=== PATIENT | female | born 1980 | race Caucasian/White ===

== ENCOUNTER → 2017-11-05 | Outpatient (CLI) | payer BC ==
[~2017-11-05] MED LIST: CIPR250 PO; DOXY100 PO; HYDGUAL120 PO; OXYACE5T PO; PHENA200 PO
[2017-11-07 13:01] LABS: HPV Genotype 16 Not Detected (NOTDET); HPV Genotype 18 Not Detected (NOTDET)
[2017-11-11 07:42] LABS: HPV High Risk Other Not Detected (NOTDET)
== END | disposition home or self-care (01) ==
LOC: LAB 16:09
PROVIDERS: Obstetrics & Gynecology
DX: Z12.4 Encounter for screening for malignant neoplasm of cervix (principal)
CPT/HCPCS: 87624; G0123

== ENCOUNTER → 2018-03-31 | Outpatient (CLI) | payer BC ==
[2018-03-31 12:51] LABS: Source, Urine Clean Catch
[2018-03-31 14:45] LABS: Bilirubin, Urine Neg (Neg); Blood, Urine 4+ (Neg); Glucose Qualitative, Urine Neg (Neg); Ketones, Urine Neg (Neg); Leukocyte Esterase, Urine 2+ (Neg); Nitrite, Urine Neg (Neg); Protein, Urine Neg (Neg); Specific Gravity, Urine 1.015 (1.003-1.022); Urobilinogen, Urine NORM (Normal)
[2018-03-31 14:57] LABS: Appearance, Urine Clear (Clear); Color, Urine Pale Yellow (P-Yellow)
[2018-03-31 14:58] LABS: White Blood Cells, Urine 25-50 /hpf (0-5)
[2018-03-31 14:59] LABS: Bacteria Mod /hpf; Red Blood Cells, Urine 25-50 /hpf (0-2); Squamous Epithelial Cells Not Seen /hpf (Few)
== END | disposition home or self-care (01) ==
LOC: LAB 12:48 → LAB SHORT 12:48
PROVIDERS: Internal Medicine
DX: R30.0 Dysuria (principal)
CPT/HCPCS: 81001; 87077; 87086; 87186

== ENCOUNTER 2018-12-06 06:21 | Emergency (ER) | payer BC ==
[~2018-12-06] VITALS: Ht 177.8 cm; Wt 106.6 kg
[2018-12-06] MEDS ORDERED: ROPI.25 PO (06:53)
[2018-12-06] MEDS ORDERED: Omega-31000 MG PO (06:55)
[2018-12-06] MEDS ORDERED: OMEG1CAP30 PO (06:55)
[2018-12-06 07:37] LABS: Source, Urine Clean Catch
[2018-12-06 07:59] LABS: BASOPHILS ABSOLUTE AUTO 0.02 K/mm3 (0.00-0.23); BASOPHILS PERCENT AUTO 0 % (0-2); EOSINOPHILS PERCENT AUTO 0 % (0-6); Hemoglobin 13.3 g/dL (11.5-16.0); IMMATURE GRAN ABSOLUTE AUTO 0.03 K/mm3 (0.00-0.10); IMMATURE GRAN PERCENT AUTO 0 % (0-1); LYMPHOCYTES ABSOLUTE AUTO 1.09 K/mm3 (0.84-5.20); LYMPHOCYTES PERCENT AUTO 10 % (21-46); MONOCYTES ABSOLUTE AUTO 0.27 K/mm3 (0.16-1.47); MONOCYTES PERCENT AUTO 3 % (4-13); Mean Corpuscular HGB 30.2 pg (26.0-34.0); Mean Corpuscular HGB Conc 33.3 g/dL (31.5-36.5); Mean Corpuscular Volume 91 fL (80-100); Mean Platelet Volume 10.3 fL (9.1-12.4); NEUTROPHILS ABSOLUTE AUTO 9.49 K/mm3 (1.96-9.15); NEUTROPHILS PERCENT AUTO 87 % (41-73); Platelet Count 260 K/mm3 (150-400); RDW Coefficient Variation 13.1 % (11.7-14.2); RDW Standard Deviation 43.9 fL (35.1-46.3); Red Blood Cell Count 4.41 M/mm3 (3.80-5.20)
[2018-12-06 08:11] LABS: Alanine Aminotransfer (ALT/SGP 39 U/L (12-78); Albumin, Blood 3.9 g/dL (3.4-5.0); Albumin/Globulin Ratio 1.2 (0.8-1.8); Alk Phos 65 U/L (50-136); Anion Gap 9 mmol/L (6-16); Aspartate Aminotrans (AST/SGOT 21 U/L (12-37); Bilirubin, Total 0.3 mg/dL (0.1-1.0); Blood Urea Nitrogen 17 mg/dL (8-24); Bun/Creatinine Ratio 27.7 (12.0-20.0); CO2, Blood 22 mmol/L (21-32); Calcium, Blood 8.5 mg/dL (8.5-10.1); Chloride, Blood 108 mmol/L (98-108); Creatinine, Blood 0.61 mg/dL (0.40-1.00); Globulin, Blood 3.3 g/dL (2.2-4.0); Glomerular Filtration Rate >60 (60-); Glucose, Blood 139 mg/dL (70-99); Potassium, Blood 3.8 mmol/L (3.5-5.5); Sodium, Blood 139 mmol/L (136-145); Total Protein, Blood 7.2 g/dL (6.4-8.2)
[2018-12-06 08:16] LABS: Appearance, Urine Hazy (Clear); Bilirubin, Urine Neg (Neg); Blood, Urine 2+ (Neg); Color, Urine Yellow (P-Yellow); Glucose Qualitative, Urine Neg (Neg); Ketones, Urine 4+ (Neg); Leukocyte Esterase, Urine Neg (Neg); Nitrite, Urine Neg (Neg); Protein, Urine 2+ (Neg); Specific Gravity, Urine 1.025 (1.003-1.022); Urobilinogen, Urine NORM (Normal)
[2018-12-06 08:33] LABS: Amorphous Heavy (0-Heavy); Bacteria Few /hpf; Red Blood Cells, Urine 0-2 /hpf (0-2); Squamous Epithelial Cells Many /hpf (Few); White Blood Cells, Urine Not Seen /hpf (0-5)
[2018-12-06] MEDS ORDERED: ONDA4ODT MM (08:36)
[2018-12-06] MEDS ORDERED: Norco 5-325 Ta1 EACH PO (08:36)
== END 2018-12-06 09:58 | disposition home or self-care (01) ==
LOC: ER 06:21
PROVIDERS: Emergency Medicine
DX: K80.50 Calculus of bile duct without cholangitis or cholecystitis without obstruction (principal); K82.1 Hydrops of gallbladder; Z79.891 Long term (current) use of opiate analgesic
CPT/HCPCS: 36415; 76705; 80053; 81001; 81025; 83690; 85025; 96374; 96375; 99284-25; J1170; J2405; J3010; J7030

== ENCOUNTER 2018-12-17 06:02 | Day surgery (SDC) | payer BC ==
[~2018-12-17] VITALS: Ht 177.8 cm; Wt 103.4 kg
[~2018-12-17 06:02] MED LIST changes: +Norco 5-325 Ta1 EACH PO; +OMEG1CAP30 PO; +ONDA4ODT MM; +Omega-31000 MG PO; +ROPI.25 PO
[2018-12-17] MEDS ORDERED: AMOCLA500 PO (06:46)
--- NOTE | 2018-12-17 06:47 | NUR ---
Ambulatory in Day Surgery History, Chart, Medications and Allergies reviewed before start of procedure. Lungs clear T/O to Auscultation. Pre-Op teaching done. Pt verbalizes understanding. Patient States Post-Procedure ride home has been arranged.
--- NOTE | 2018-12-17 10:43 | NUR ---
Patient up to Ambulate independently. Gait steady. Discharge instructions reviewed with patient. Patient verbalizes understanding. Copy given to patient to take home. Patient States Post-Procedure ride home has been arranged. Discharged via wheelchair to private car for ride home.
--- NOTE | 2018-12-17 12:09 | NUR ---
12/17/18 1209 Molly Cavazos CHART AUDITS.
== END 2018-12-17 10:42 | disposition home or self-care (01) ==
LOC: ORSCMMR 06:02 → ORD 07:30 → ORSCMMR 10:42
PROVIDERS: Surgery
PROC: BF031ZZ Plain Radiography of Gallbladder and Bile Ducts using Low Osmolar Contrast (ICD-10-PCS; principal; 2018-12-17 07:30)
PROC: 0FT44ZZ Resection of Gallbladder, Percutaneous Endoscopic Approach (ICD-10-PCS; principal; 2018-12-17 07:30)
DX: K80.10 Calculus of gallbladder with chronic cholecystitis without obstruction (principal); E66.9 Obesity, unspecified; Z68.34 Body mass index [BMI] 34.0-34.9, adult
CPT/HCPCS: 74300; 88304; C1729; C1894; J0330; J0694; J1885; J2250; J2405; J2710; J3010; J7120

== ENCOUNTER 2020-09-11 00:23 | Day surgery (SDC) | payer BC ==
[~2020-09-11 00:23] MED LIST changes: +AMOCLA500 PO
== END 2020-09-11 17:34 | disposition home or self-care (01) ==
LOC: ATC 00:23
DX: E61.1 Iron deficiency (principal); G25.81 Restless legs syndrome; E53.8 Deficiency of other specified B group vitamins; E55.9 Vitamin D deficiency, unspecified
CPT/HCPCS: J2916

== ENCOUNTER → 2020-11-15 | Outpatient (CLI) | payer BC ==
[2020-11-15 09:34] LABS: Source, Urine Clean Catch
[2020-11-15 11:01] LABS: Blood, Urine 4+ (Neg); Glucose Qualitative, Urine Neg (Neg); Ketones, Urine Neg (Neg); Leukocyte Esterase, Urine 3+ (Neg); Nitrite, Urine Pos (Neg); Protein, Urine Neg (Neg); Urobilinogen, Urine 2+ (Normal)
[2020-11-15 11:25] LABS: Bilirubin, Urine 2+ (Neg)
[2020-11-15 11:27] LABS: Appearance, Urine Hazy (Clear); Color, Urine Amber (P-Yellow); White Blood Cells, Urine 25-50 /hpf (0-5)
[2020-11-15 11:28] LABS: Bacteria Many /hpf; Squamous Epithelial Cells Few /hpf (Few)
== END ==
LOC: LAB SHORT 09:32 → PLD 09:32
PROVIDERS: Internal Medicine
DX: R30.0 Dysuria (principal)
CPT/HCPCS: 81001; 87077; 87086; 87186

== ENCOUNTER 2020-11-27 00:16 | Day surgery (SDC) | payer BC ==
--- NOTE | 2020-11-13 14:26 | NUR ---
PT CALLED TO CANCEL HER APPOINTMENT FOR TODAY.
== END 2020-11-27 15:53 | disposition home or self-care (01) ==
LOC: ATC 00:16
DX: E61.1 Iron deficiency (principal); E55.9 Vitamin D deficiency, unspecified; E53.8 Deficiency of other specified B group vitamins; G25.81 Restless legs syndrome; Z98.84 Bariatric surgery status; Z79.899 Other long term (current) drug therapy
CPT/HCPCS: 96365; Q0138

== ENCOUNTER 2020-12-01 00:22 | Day surgery (SDC) | payer BC | END 2020-12-01 23:18 | disposition home or self-care (01) | LOC: ATC 00:22 | DX: E61.1 Iron deficiency (principal); E53.8 Deficiency of other specified B group vitamins; E55.9 Vitamin D deficiency, unspecified; G25.81 Restless legs syndrome; Z79.899 Other long term (current) drug therapy | CPT/HCPCS: Q0138 ==

== ENCOUNTER 2020-12-05 00:07 | Day surgery (SDC) | payer BC | END 2020-12-05 15:55 | disposition home or self-care (01) | LOC: ATC 00:07 | DX: E61.1 Iron deficiency (principal); G25.81 Restless legs syndrome | CPT/HCPCS: 96365; Q0138 ==

== ENCOUNTER → 2021-06-27 | Outpatient (CLI) | payer BC ==
[2021-06-27 08:37] LABS: Source, Urine Clean Catch
[2021-06-27 09:33] LABS: Appearance, Urine Hazy (Clear); Blood, Urine 2+ (Neg); Glucose Qualitative, Urine Neg (Neg); Ketones, Urine Neg (Neg); Leukocyte Esterase, Urine 3+ (Neg); Nitrite, Urine Pos (Neg); Protein, Urine 3+ (Neg); Urobilinogen, Urine 4+ (Normal)
[2021-06-27 10:07] LABS: Color, Urine Orange (P-Yellow)
[2021-06-27 10:10] LABS: White Blood Cells, Urine TNTC /hpf (0-5)
[2021-06-27 10:11] LABS: Bacteria Many /hpf; Renal Epithelial Rare /hpf (0-Rare); Squamous Epithelial Cells Few /hpf (Few); Transitional Epithelial Cells Few /hpf (0-Rare)
== END | disposition home or self-care (01) ==
LOC: LAB 08:33 → LAB SHORT 08:33
PROVIDERS: Internal Medicine
DX: R30.0 Dysuria (principal)
CPT/HCPCS: 81001; 87077; 87086; 87186

== ENCOUNTER → 2021-08-20 | Outpatient (CLI) | payer BC ==
[2021-08-20 11:14] LABS: Source, Urine Clean Catch
[2021-08-20 12:26] LABS: Appearance, Urine Hazy (Clear); Blood, Urine 2+ (Neg); Glucose Qualitative, Urine Neg (Neg); Ketones, Urine 3+ (Neg); Leukocyte Esterase, Urine 3+ (Neg); Nitrite, Urine Pos (Neg); Protein, Urine 1+ (Neg); Urobilinogen, Urine 3+ (Normal)
[2021-08-20 12:50] LABS: Bilirubin, Urine 3+ (Neg); Color, Urine Amber (P-Yellow)
[2021-08-20 12:55] LABS: Squamous Epithelial Cells Rare /hpf (Few); White Blood Cells, Urine 50-100 /hpf (0-5)
[2021-08-20 12:56] LABS: Bacteria Many /hpf
== END | disposition home or self-care (01) ==
LOC: LAB SHORT 11:12
PROVIDERS: Internal Medicine
DX: R30.0 Dysuria (principal)
CPT/HCPCS: 81001; 87077; 87086; 87186

== ENCOUNTER → 2023-05-12 | Outpatient (CLI) | payer BC | END | disposition home or self-care (01) | LOC: PLD 08:43 → LAB SHORT 08:43 | DX: N84.1 Polyp of cervix uteri (principal); R93.89 Abnormal findings on diagnostic imaging of other specified body structures | CPT/HCPCS: 88305 ==

== ENCOUNTER 2023-09-11 06:14 | Inpatient (IN) | payer BC ==
[2023-09-11] VITALS (19 sets, daily range): BP systolic 106–1123; BP diastolic 48–93
[~2023-09-11] VITALS: Ht 177.8 cm; Wt 125.5 kg
[~2023-09-11 06:14] MED LIST changes: +CELEXA40 M1 PO; +GABA300 PO
--- NOTE | 2023-09-11 06:42 | NUR ---
Ambulatory in Day Surgery History, Chart, Medications and Allergies reviewed before start of procedure.Lungs clear T/O to Auscultation. Patient confirms NPO status and agrees with scheduled surgery. Patient reports completing Chlorhexadine shower X2 prior to admission to hospital.Surgical site prepped with 2% Chlorhexidine cloth wipe. Patient States Post-Procedure ride home has been arranged.
--- NOTE | 2023-09-11 09:10 | NUR ---
09/11/23 0910 Caprice Casillas 0.5% WITH EPI 1:200,[address] HARRELL 30'CC CONVERTED TO OPEN AT 0850.
--- NOTE | 2023-09-11 12:32 | NUR ---
PT ARRIVED TO FLOOR AT APROX 1136. LAP SITE AT UMBILICUS W/GAUZE AND SCANT AMT PINKISH DRAINAGE. TRANSVERSE ABD INCISION W/MEDIPORE WITH SMALL SPOTS PINKISH DRAINAGE. PT PAIN 5/10 ABD TRAVELING TO L SHOULDER, MEDICATED WITH SIMETHICON, TOLERATING CLEAR LIQUIDS, NO N/V. GIVEN REGULAR DIET. WILL START ON PO PAIN MEDICATION.
--- NOTE | 2023-09-11 13:49 | NUR ---
Pt. is awake in bed and welcomes my visit. Pt. is pleasant. Spouse is present. 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 Facilitated conversation about life and recovery plans. Pt. displayed evidence of being aware and engaged. Pt. verbalized gratitude for the spiritual care visit.
--- NOTE | 2023-09-11 19:13 | NUR ---
SHIFT SUMMARY PT POD 0 BRITTANY. LAP SITE X'S 1 W/GAUZE AT UMBILICUS AND TRANSVERSE INCISION W/MEDIPORE UNCHANGED FROM ADMIT ASSESSMENT. LOPEZ DC'D, VOIDING W/O DIFFICULTY. AMBULATING IN HALLWAY. TOLERATING REGULAR DIET NO N/V, PAIN WELL MANAGED WITH TORADOL AND PO PAIN MEDICATION. SALINE LOCKED. PT USED ONLY 2 PADS THIS SHIFT, BOTH WITH MINIMAL SPOTTING. PLAN TO DC HOME TOMORROW.
[2023-09-12 04:32] VITALS: BP 112/67
[2023-09-12 04:50] LABS: BASOPHILS ABSOLUTE AUTO 0.02 K/mm3 (0.00-0.23); BASOPHILS PERCENT AUTO 0 % (0-2); EOSINOPHILS ABSOLUTE AUTO 0.03 K/mm3 (0.00-0.68); EOSINOPHILS PERCENT AUTO 0 % (0-6); Hematocrit 30.9 % (33.0-51.0); Hemoglobin 10.1 g/dL (11.5-16.0); IMMATURE GRAN ABSOLUTE AUTO 0.02 K/mm3 (0.00-0.10); IMMATURE GRAN PERCENT AUTO 0 % (0-1); LYMPHOCYTES ABSOLUTE AUTO 2.08 K/mm3 (0.84-5.20); LYMPHOCYTES PERCENT AUTO 28 % (21-46); MONOCYTES ABSOLUTE AUTO 0.65 K/mm3 (0.16-1.47); MONOCYTES PERCENT AUTO 9 % (4-13); Mean Corpuscular HGB 30.9 pg (26.0-34.0); Mean Corpuscular HGB Conc 32.7 g/dL (31.5-36.5); Mean Corpuscular Volume 95 fL (80-100); Mean Platelet Volume 9.9 fL (9.1-12.4); NEUTROPHILS ABSOLUTE AUTO 4.67 K/mm3 (1.96-9.15); NEUTROPHILS PERCENT AUTO 63 % (41-73); Platelet Count 214 K/mm3 (150-400); RDW Coefficient Variation 13.7 % (11.7-14.2); RDW Standard Deviation 47.6 fL (35.1-46.3); Red Blood Cell Count 3.27 M/mm3 (3.80-5.20); White Blood Cell Count 7.47 K/mm3 (4.00-11.30)
--- NOTE | 2023-09-12 05:20 | NUR ---
SHIFT SUMMARY POD 1 BRITTANY. NO ACUTE CHANGES OVERNIGHT. VSS. ULBILICAL SITE DRESSING CHANGED AT BEGINNING OF SHIFT R/T COMPLETE SATURATION OF SANGUIEOUS FLUID. PT IS SATUATING NEW DRESSING FROM EDGE TO CENTER, SCANT SANGUINEOUS DRAINAGE. TRANSVERSE ABDOMINAL SITE REMAINS UNCHANGED. PT REPORTS CHANGING 1 PRINCESS PAD AT THE BEGINNING OF SHIFT, SCANT PINK DRAINAGE. PT PLACED LAGER PAD OVERNIGHT "JUST IN CASE," SHE HAS NOT CHANGED PAD SINCE THAT PLACEMENT. TOLERATING ORALS. REPORTS PAIN MANAGABLE, MEDICATED PER EMAR. HEAT PACK IN USE. AMBULATES INDEPENDENTLY. URINE MOSTLY YELLOW, SOME PINK TINGED URINE, NO CLOTS NOTED IN URINE OR ON PRINCESS PADS. PT TO D/C LATER THIS AM. CALL LIGHT WITHIN REACH, BED IN LOWEST POSITION, WILL REPORT TO DAY RN.
[2023-09-12 07:25] VITALS: BP 110/63
--- NOTE | 2023-09-12 07:40 | NUR ---
PT APPEARS TO BE RESTING COMFORTABLY IN BED. REPORTS PAIN/CRAMPING 5/10, REPORTS TOLERABLE AT THIS TIME. LAP SITE AT UMBILICUS W/GAUZE AND TEGADERM APPEARS SATURATED W/SS FLUID. TRANSVERSE ABD INCISION W/MEDIPORE W/INCREASED DRAINAGE FROM PREVIOUS ASSESSMENT. BOTH WILL BE CHANGD PRIOR TO DC. PT VOIDING, AMBULATING, TOLERATING PO W/NO N/V. PAIN WELL MANAGED W/PO PAIN MEDICATION. PT WOULD LIKE TO DC HOME TODAY. WILL NOTIFY MD AND REQUEST RX FOR PAIN MEDICATION FOR DC.
[2023-09-12] MEDS ORDERED: Percocet 5-3251 EACH PO (14:38)
--- NOTE | 2023-09-12 15:13 | NUR ---
DISCHARGE PT DISCHARGED HOME FROM UNIT AT APROX 1440. PT GIVEN WRITTEN AND VERBAL DC INSTRUCTIONS AND VERBALIZED UNDERSTANDING OF THESE INSTRUCTIONS. IV REMOVED. WRITTEN RX FOR PERCOCET GIVEN TO PT, COPY IN CHART. WC TO CAR.
== END 2023-09-12 15:38 | disposition home or self-care (01) | DRG 743 ==
LOC: ORSCMMR 06:14 → SURS 07:59 → ORD 08:00 → ORSCMMR 08:00 → SURS 11:17
PROVIDERS: ADMIT Obstetrics & Gynecology
PROC: 0UT10ZZ Resection of Left Ovary, Open Approach (ICD-10-PCS; 2023-09-11)
PROC: 0UJD4ZZ Inspection of Uterus and Cervix, Percutaneous Endoscopic Approach (ICD-10-PCS; principal; 2023-09-11 08:00)
PROC: 0UT90ZZ Resection of Uterus, Open Approach (ICD-10-PCS; principal; 2023-09-11 08:00)
PROC: 0UT60ZZ Resection of Left Fallopian Tube, Open Approach (ICD-10-PCS; 2023-09-11 08:00)
DX: N93.8 Other specified abnormal uterine and vaginal bleeding (principal); N83.202 Unspecified ovarian cyst, left side; E66.9 Obesity, unspecified; Z68.39 Body mass index [BMI] 39.0-39.9, adult; Z53.31 Laparoscopic surgical procedure converted to open procedure
CPT/HCPCS: 36415; 85025; 86850; 86900; 86901; 88307; A9270; J0171; J0690; J1100; J1170; J1885; J2250; J2371; J2405; J2704; J2765; J3010; J7120

== ENCOUNTER → 2025-03-01 | Outpatient (CLI) | payer BC ==
[~2025-03-01] MED LIST changes: +Percocet 5-3251 EACH PO
[2025-03-01 15:18] LABS: Source, Urine Voided
[2025-03-01 16:00] LABS: Appearance, Urine Clear (Clear); Bilirubin, Urine Neg (Neg); Blood, Urine 2+ (Neg); Color, Urine Yellow (P-Yellow); Glucose Qualitative, Urine Neg (Neg); Ketones, Urine Neg (Neg); Leukocyte Esterase, Urine 2+ (Neg); Nitrite, Urine Pos (Neg); Protein, Urine Neg (Neg); Urobilinogen, Urine NORM (Normal)
[2025-03-01 16:19] LABS: White Blood Cells, Urine 25-50 /hpf (0-5)
[2025-03-01 16:20] LABS: Bacteria Mod /hpf; Squamous Epithelial Cells Few /hpf (Few)
== END | disposition home or self-care (01) ==
LOC: LAB SHORT 15:00 → LAB 15:00
PROVIDERS: Internal Medicine
DX: R30.0 Dysuria (principal)
CPT/HCPCS: 81001; 87086

== ENCOUNTER 2025-05-18 10:19 | Day surgery (SDC) | payer BC ==
[~2025-05-18] VITALS: Ht 177.8 cm; Wt 127.8 kg
[2025-05-18] MEDS ORDERED: PROGESTERONE100 M1 (11:17)
[2025-05-18] MEDS ORDERED: NEUPRO1 EAC2 (11:18)
[2025-05-18 13:17] VITALS: BP 129/74
== END 2025-05-18 13:16 | disposition home or self-care (01) ==
LOC: ORSCSDS 10:19
PROVIDERS: Specialist
PROC: 0DJD8ZZ Inspection of Lower Intestinal Tract, Via Natural or Artificial Opening Endoscopic (ICD-10-PCS; principal; 2025-05-18 12:00)
DX: Z12.11 Encounter for screening for malignant neoplasm of colon (principal); K64.8 Other hemorrhoids; E66.01 Morbid (severe) obesity due to excess calories; Z68.41 Body mass index [BMI] 40.0-44.9, adult; Z79.899 Other long term (current) drug therapy
CPT/HCPCS: J2704; J7120